=== PATIENT | male | born 1985 | race Caucasian/White ===

== ENCOUNTER 2022-11-01 13:05 | Emergency (ER) | payer OTHER ==
[2022-11-01 13:14] VITALS: BP 134/77; O2SAT 97
--- NOTE | 2022-11-01 14:05 | ED Physician Documentation ---
PD HPI HEAD INJURY - Stated complaint Stated Complaint: HEAD LAC - Chief complaint Chief Complaint: Laceration - History obtained from History obtained from: Patient - History of Present Illness Mechanism of head injury: Blow (accidentally struck with hammer. he was prying board loose above him, the hammer claw slipped and the hammer fell to his forehead, causing laceration.) Where head injury occurred: Home Timing - onset: Today Location of injury: Front Quality of pain: Sharp Associated symptoms: No: LOC, AMS, Nausea / vomiting Symptoms worsen with: Palpation Contributing factors: No: Anticoagulated Similar symptoms before: Has not had sx before Recently seen: Not recently seen Review of Systems Eyes: denies: Decreased vision, Irritation Neurologic: denies: Near syncope, Altered mental status, Headache PD PAST MEDICAL HISTORY - Past Medical History Cardiovascular: None Neuro: None - Allergies Allergies/Adverse Reactions: Allergies Allergy/AdvReac Type Severity Reaction Status Date / Time No Known Drug Allergies Allergy Verified 11/01/22 13:12 PD ED PE NORMAL - Vitals Vital signs reviewed: Yes - General General: Alert and oriented X 3, No acute distress, Well developed/nourished - HEENT HEENT: PERRL, EOMI, Other (right to mid forehead with 2 cm laceration "Z" shaped, with still some ongoing bleeding. no FB.) Results - Vitals Vitals: Vital Signs - 24 hr 11/01/22 13:08 Temperature 36.7 C Heart Rate 62 Respiratory 16 Rate Blood Pressure 134/77 H O2 Saturation 97 Oxygen O2 Source Room air Procedures - Laceration (location) forehead Length in cm: 2 Wound type: Irregular Neurovascular status: Sensory intact Anesthesia: Lidocaine 1% Skin layer closure: Nylon, Running, Size #-0 - enter number (6), Sutures - enter # (8) PD Medical Decision Making - ED course Complexity details: considered differential (forehead laceration. To fatty tissue. Irregular shape. Has some ongoing bleeding. Shared decision with pt to place sutures. Wound sutured without problems, with now bleeding stopped, and wound much nicer looking.), d/w patient Departure - Departure Disposition: 01 Home, Self Care Clinical Impression: Forehead laceration Qualifiers: Encounter type: initial encounter Qualified Code(s): S01.81XA - Laceration without foreign body of other part of head, initial encounter Condition: Stable Record reviewed to determine appropriate education?: Yes Instructions: ED Laceration All Comments: It is okay to wash and shower. Clean off the wound twice a day with soap and water, or peroxide and water. Apply some antibiotic ointment to it to keep it moist. Also to watch for signs of infection such as purulence, redness or increasing pain. Return to your primary care or the ER at the specified time for suture removal. Suture removal 7 to 8 days. Tylenol ibuprofen if needed for pains. Forms: PCP List Discharge Date/Time: 11/01/22 14:43
== END 2022-11-01 14:43 | disposition home or self-care (01) ==
LOC: ED 13:05
DX: S01.81XA Laceration without foreign body of other part of head, initial encounter (principal); W20.8XXA Other cause of strike by thrown, projected or falling object, initial encounter; Y93.89 Activity, other specified; Y92.009 Unspecified place in unspecified non-institutional (private) residence as the place of occurrence of the external cause
CPT/HCPCS: 12011; 99281

== ENCOUNTER 2024-11-26 23:44 | Inpatient (IN) ==
--- NOTE | 2024-11-27 00:22 | ED Physician Documentation ---
PD HPI ABD PAIN Stated complaint Stated Complaint: SOA/ABD PX Chief complaint Chief Complaint: Abd Pain Additional information Additional information: HPI from patient. Patient planes of generalized abdominal pain, predominantly right-sided, gradual onset 3-4 days ago while at home at rest, gradually progressing in intensity. Denies nausea, vomiting, diarrhea, fever. Denies h/o similar symptoms. Pain is constant and exacerbated with palpation. Past surgical history includes gastric fundoplication approximately 2 years ago. Denies dysuria, hematuria, back pain, dyspnea, chest pain. Meds/Allgy Home Medications Ambulatory Orders Medication Instructions Recorded Confirmed cyclobenzaprine 10 mg tablet 10 mg PO DAILY 11/27/24 1 duloxetine 20 mg capsule,delayed 60 mg PO DAILY 11/27/24 release lidocaine 5 % topical patch patch topical ONCE PRN linda n 11/27/24 omeprazole 20 mg capsule,delayed 20 mg PO ONCE 5 11/27/24 release Allergies Allergies Allergy/AdvReac Type Severity Reaction Status Date / Time iodine Allergy Mild HIVE Verified 11/27/24 07:44 PFSH Active Problems All Active Problems (Updated 11/27/24 @ 07:25 by London Naranjo MD) Biliary colic (Acute) Medical History Medical History (Updated 11/27/24 @ 07:25 by London Naranjo MD) No pertinent past medical history Surgical History Surgical History (Updated 11/27/24 @ 06:52 by Julian Mack MD) Status post laparoscopic Ryan fundoplication No pertinent past surgical history Social History Social History Smoking Status: Never smoker Living arrangement: At home Marital Status: Do you feel safe in your home environment?: Yes History of physical, verbal, emotional, or financial abuse?: No POLST Patient has POLST: No Exam Exam Vital Signs: Vital Signs x48h Temp Pulse Pulse Resp BP BP Pulse Ox 11/27/24 17:56 65 16 130/83 96 11/27/24 16:49 36.6 C 60 16 131/81 H 94 11/27/24 16:34 16 134/80 H 94 11/27/24 16:17 36.5 C 73 18 117/79 95 11/27/24 16:05 67 16 132/79 H 93 11/27/24 16:00 68 16 139/83 H 93 11/27/24 15:55 36.5 C 64 18 133/84 H 94 11/27/24 15:51 70 14 137/77 H 94 11/27/24 15:45 68 15 129/76 94 11/27/24 15:44 81 16 129/76 94 11/27/24 15:40 36.6 C 70 19 135/85 H 94 11/27/24 15:35 76 15 138/71 H 96 11/27/24 15:30 72 15 118/64 97 11/27/24 15:26 37.1 C 76 15 129/76 97 11/27/24 15:20 37.5 C 69 20 135/79 H 99 Constitutional normal general appearance, distress noted (obvious painful discomfort) (moderate) and alert Respiratory breath sounds equal bilaterally, clear to auscultation bilaterally and no wheezes Cardiovascular normal heart rate noted and regular rhythm noted Gastrointestinal abdomen soft to palpation and tender to palpation (moderate-severe TTP diffusely, most severe right side (RUQ=RLQ)) Genitourinary no CVA tenderness Results Vitals Vitals: Vital Signs - 24 hr 11/26/24 23:49 11/27/24 00:40 11/27/24 01:10 Temperature 36.4 C L Temperature Source Oral Pulse Rate 75 Pulse Rate [Brachial] Respiratory Rate 20 Blood Pressure 140/99 H Blood Pressure [Right Brachial artery] O2 Saturation 99 O2 Source Room air Sedation scale Pain Intensity 8 10 2 11/27/24 01:59 11/27/24 04:10 11/27/24 07:18 Temperature Temperature Source Pulse Rate 66 52 L 70 Pulse Rate [Brachial] Respiratory Rate 18 18 Blood Pressure 135/79 H 123/83 144/89 H Blood Pressure [Right Brachial artery] O2 Saturation 96 95 96 O2 Source Room air Room air Room air Sedation scale Pain Intensity 1 4 11/27/24 08:54 11/27/24 08:58 11/27/24 09:30 Temperature Temperature Source Pulse Rate 61 Pulse Rate [Brachial] Respiratory Rate 18 Blood Pressure 130/78 Blood Pressure [Right Brachial artery] O2 Saturation O2 Source Room air Sedation scale Pain Intensity 7 7 2 11/27/24 10:15 11/27/24 15:20 11/27/24 15:26 Temperature 36.5 C 37.5 C 37.1 C Temperature Source Temporal Artery Scan Pulse Rate 69 76 Pulse Rate [Brachial] 65 Respiratory Rate 18 20 15 Blood Pressure 135/79 H 129/76 Blood Pressure [Right Brachial artery] 131/84 H O2 Saturation 94 99 97 O2 Source Room air Sedation scale 0-Fully awake Pain Intensity 11/27/24 15:30 11/27/24 15:35 11/27/24 15:40 Temperature 36.6 C Temperature Source Pulse Rate 72 76 70 Pulse Rate [Brachial] Respiratory Rate 15 15 19 Blood Pressure 118/64 138/71 H 135/85 H Blood Pressure [Right Brachial artery] O2 Saturation 97 96 94 O2 Source Sedation scale Pain Intensity 11/27/24 15:44 11/27/24 15:45 11/27/24 15:51 Temperature Temperature Source Pulse Rate 81 68 70 Pulse Rate [Brachial] Respiratory Rate 16 15 14 Blood Pressure 129/76 129/76 137/77 H Blood Pressure [Right Brachial artery] O2 Saturation 94 94 94 O2 Source Sedation scale Pain Intensity 11/27/24 15:53 11/27/24 15:55 11/27/24 16:00 Temperature 36.5 C Temperature Source Pulse Rate 64 68 Pulse Rate [Brachial] Respiratory Rate 18 16 Blood Pressure 133/84 H 139/83 H Blood Pressure [Right Brachial artery] O2 Saturation 94 93 O2 Source Sedation scale Pain Intensity 3 11/27/24 16:05 11/27/24 16:17 11/27/24 16:34 Temperature 36.5 C Temperature Source Pulse Rate 67 73 Pulse Rate [Brachial] Respiratory Rate 16 18 16 Blood Pressure 132/79 H 117/79 134/80 H Blood Pressure [Right Brachial artery] O2 Saturation 93 95 94 O2 Source Sedation scale Pain Intensity 11/27/24 16:49 11/27/24 17:56 11/27/24 18:27 Temperature 36.6 C Temperature Source Pulse Rate 60 Pulse Rate [Brachial] 65 Respiratory Rate 16 16 Blood Pressure 131/81 H Blood Pressure [Right Brachial artery] 130/83 O2 Saturation 94 96 O2 Source Room air Sedation scale 1-Arouses easily Pain Intensity 0 3 11/27/24 18:37 11/27/24 18:37 Temperature Temperature Source Pulse Rate Pulse Rate [Brachial] Respiratory Rate Blood Pressure Blood Pressure [Right Brachial artery] O2 Saturation O2 Source Sedation scale Pain Intensity 3 3 Oxygen O2 Source Room air Labs Labs: Laboratory Tests 11/27/24 11/27/24 11/27/24 00:22 01:55 05:59 WBC 11.3 H 5.2 RBC 5.28 5.11 Hgb 16.0 15.5 Hct 45.3 44.5 MCV 85.8 87.1 MCH 30.3 30.3 MCHC 35.3 34.8 RDW 11.7 L 11.7 L Plt Count 231 198 MPV 9.4 9.1 Neut # (Auto) 8.1 H 3.7 Lymph # (Auto) 2.0 1.0 L [place] # (Auto) 0.9 0.5 Eos # (Auto) 0.2 0.0 Baso # (Auto) 0.0 0.0 Absolute Nucleated RBC 0.00 0.00 Nucleated RBC % 0.0 0.0 Sodium 137 136 Potassium 3.9 4.5 Chloride 102 101 Carbon Dioxide 30 31 Anion Gap 5.0 L 4.0 L BUN 14 12 Creatinine 1.0 0.9 Estimated GFR (MDRD) 84 L 94 Glucose 163 H 111 H Calcium 8.9 8.6 Total Bilirubin 1.0 1.8 H AST 79 H 176 H ALT 70 H 143 H Alkaline Phosphatase 84 83 Total Protein 7.0 6.6 Albumin 4.0 3.8 Globulin 3.0 2.8 Albumin/Globulin Ratio 1.3 1.4 Lipase 21 13 Urine Color y Urine Clarity c Urine pH 8.0 H Ur Specific [place] 1.010 Urine Protein NEGATIVE Urine Glucose (UA) NEGATIVE Urine Ketones NEGATIVE Urine Occult Blood NEGATIVE Urine Nitrite NEGATIVE Urine Bilirubin NEGATIVE Urine Urobilinogen 4 H Ur Leukocyte Esterase NEGATIVE Ur Microscopic Review NOT INDICATED Urine Culture Comments NOT INDICATED Rads (name of study) CT A/P with IV contrast: Relevant Findings:: Prelim report reviewed and See rad report PD Medical Decision Making ED course Complexity details: reviewed results, re-evaluated patient, considered differential and d/w patient ED course: Mild leukocytosis (WBC 11.3). Mildly elevated AST (79), ALT (70) but otherwise normal LFTs and normal lipase. CT A/P interpreted by radiololgist as "Cholelithiasis with gallbladder wall thickening and pericholecystic edema, concerning for acute cholecystitis. No radiopaque choledocholithiasis. Enlarged jaun hepatic lymph node, likely reactive." Patient is given 1 liter NS IV, 4mg IV zofran, 25mg IV benadryl, and 1mg IV hydromorphone. The benadryl and zofran were given as pre-treatment prior to the IV contrast as he seems to recall having nausea with IV contrast in the past, and his s.o. (at bedside) thinks he might have had hives with IV contrast in the past; neither is confident in these recollections, however. Patient did not have any adverse reaction(s) to tonight's IV contrast. He reports excellent symptom improvement with the IV dilaudid. On reexam, he is still TTP but significantly less than before receiving the medications. The TTP is now focal to RUQ and epigastrium. I discussed this case with Dr. Mack (leaf conditioner surgery for [facility]). There are no inpatient beds currently available at [facility] but likely will be in AM. Plan is to hold patient in ED until AM when Dr. Mack will evaluate patient in ED to assess for appropriate disposition. I did discuss option of d/c home with close follow-up and careful return precautions with patient but he is reluctant given how severe the pain was and how consistent it had been over past few days. Discharge Plan Discharge Patient Disposition: 66 [facility] DC/Xfer Condition: Stable Clinical Impression: Biliary colic Interventions: ED Admission Assessment Last Done: 11/27/24 09:15 Vitals documented within 30 minutes of discharge?: Yes
[2024-11-27 00:32] LABS: HCT - HEMATOCRIT 45.3 % (42.0-52.0); HGB - HEMOGLOBIN 16.0 g/dL (14.0-18.0); MEAN PLATELET VOLUME 9.4 fL (7.4-11.4); NRBC ABSOLUTE COUNT (AUTO) 0.00 x10^3/uL; NUCLEATED RED BLOOD CELLS AUTO 0.0 /100WBC; PLT - PLATELET COUNT 231 10^3/uL (130-450); RED CELL DISTRIBUTION WIDTH 11.7 % (12.0-15.0)
[2024-11-27] MEDS: SODIUM CHLORIDE 0.9% 1,000 ML IV STA ×2 (00:40→05:54)
[2024-11-27] MEDS: HYDROmorphone 1 MG/ML CARPUJECT IVP STA (00:40)
[2024-11-27 00:50] LABS: ALT ALANINE AMINOTRANSFERASE 70.0 IU/L (10-60); AST ASPARTATE AMINOTRANSFERASE 79.0 IU/L (10-42); BUN - BLOOD UREA NITROGEN 14.0 mg/dL (6-20); CARBON DIOXIDE - CO2 30.0 mmol/L (21-32); CREATININE 1.0 mg/dL (0.6-1.3); GFR - MDRD 84.0 (>89)
[2024-11-27] MEDS: ONDANSETRON 4 MG/2 ML VIAL IVP STA (01:25)
--- NOTE | 2024-11-27 02:10 | CT Report ---
PROCEDURE: CT Abdomen/Pelvis W INDICATIONS: abd. pain CONTRAST: 100cc [id number] TECHNIQUE: After the administration of intravenous contrast, a CT scan of the abdomen and pelvis was performed. Images were recorded and evaluated at appropriate window settings. Reformats: coronal and sagittal. For radiation dose reduction, the following was used: automated exposure control, adjustment of mA and/or kV according to patient size. COMPARISON: None. FINDINGS: Image quality: Diagnostic. Lower chest: Bilateral lower lobe dependent atelectasis. Liver: Diffuse hepatic steatosis. No focal mass. Increased attenuation of the gallbladder fossa, consistent with hyperemia, a secondary finding of acute cholecystitis. Gallbladder: Gallstones with gallbladder wall thickening and pericholecystic edema, concerning for acute cholecystitis. Biliary tree: No intrahepatic or extrahepatic dilation, accounting for age. No radiopaque choledocholithiasis. Spleen: No splenomegaly. Pancreas: No pancreatic ductal dilation. Adrenals: No adrenal nodule. Kidneys and ureters: No hydronephrosis. No renal cystic lesion which requires follow up. No solid mass. Stomach, bowel and peritoneum: No gastric or small bowel dilation. No abnormal wall thickening. No pathologic free fluid. Fundal gastric diverticulum. Normal appendix which courses inferiorly Lymph nodes: Enlarged jaun hepatic 1.5 cm node by short axis (2/47). Vessels: No infrarenal aortic aneurysm. Patent portal vein. PELVIS Reproductive organs: Unremarkable. Bladder: No abnormal wall thickening. Pelvic lymph nodes: No pelvic adenopathy by size criteria. Bones: No aggressive osseous abnormality. Other: No significant ventral or inguinal hernia. IMPRESSION: 1. Cholelithiasis with gallbladder wall thickening and pericholecystic edema, concerning for acute cholecystitis. No radiopaque choledocholithiasis. 2. Enlarged jaun hepatic lymph node, likely reactive. Findings were discussed with Dr. Naranjo by Dr. Campa at time of dictation. Reviewed by: Marv Campa MD on 11/27/2024 2:07 AM PDT Approved by: Marv Campa MD on 11/27/2024 2:07 AM PDT Station ID: [id number]
[2024-11-27 02:20] LABS: GLUCOSE, URINE (UA) NEGATIVE (NEGATIVE); KETONES,URINE (UA) NEGATIVE (NEGATIVE); OCCULT BLOOD,URINE NEGATIVE (NEGATIVE)
[2024-11-27 06:02] LABS: HCT - HEMATOCRIT 44.5 % (42.0-52.0); HGB - HEMOGLOBIN 15.5 g/dL (14.0-18.0); MEAN PLATELET VOLUME 9.1 fL (7.4-11.4); NRBC ABSOLUTE COUNT (AUTO) 0.00 x10^3/uL; NUCLEATED RED BLOOD CELLS AUTO 0.0 /100WBC; PLT - PLATELET COUNT 198 10^3/uL (130-450); RED CELL DISTRIBUTION WIDTH 11.7 % (12.0-15.0)
[2024-11-27 06:33] LABS: ALT ALANINE AMINOTRANSFERASE 143.0 IU/L (10-60); AST ASPARTATE AMINOTRANSFERASE 176.0 IU/L (10-42); BUN - BLOOD UREA NITROGEN 12.0 mg/dL (6-20); CARBON DIOXIDE - CO2 31.0 mmol/L (21-32); CREATININE 0.9 mg/dL (0.6-1.3); GFR - MDRD 94.0 (>89)
--- NOTE | 2024-11-27 06:59 | HISTORY & PHYSICAL EXAMINATION ---
Chief Complaint Chief Complaint Chief Complaint: Abdominal apin History of Present Illness Admitted From Admitted From:: ED History Obtained From History obtained from: Patient Exam Limitations: None History of Present Illness HPI Comment/Other: Bk is a 39 year old male who has had 3 days of crescenso bilary colic with the most intense episode starting yesterday around 2100. The pain is sharp, located in the RUQ and radiates to the back. He has no nausea, vomiting or bloating. A CT of the abdomen was performed last night and revealed gallstones and gallbladder distension. US was not available and there were no available beds to admit him into the hospital so he was managed in the ED. This morning his pain is nearly completely gone. Bk works in the [employer], had had a previous laparoscopic ryan fundoplication 5 years ago, and denies prior episodes of this type of abdominal discomfort before this week. He tells me his pain which was at level 8/10 last night is nor at a level of 3. Meds/Allgy Home Medications Ambulatory Orders Medication Instructions Recorded Confirmed hydrocodone 5 mg-acetaminophen 325 1 tab PO QID PRN pa in #14 tabs 09/12/24 mg tablet Allergies Allergies Allergy/AdvReac Type Severity Reaction Status Date / Time iodine Allergy Mild HIVE Verified 11/27/24 01:02 PFSH Active Problems All Active Problems (Updated 11/27/24 @ 06:52 by Julian Mack MD) Biliary colic (Acute) Medical History Medical History (Updated 11/27/24 @ 06:52 by Julian Mack MD) No pertinent past medical history Surgical History Surgical History (Updated 11/27/24 @ 06:52 by Julian Mack MD) Status post laparoscopic Ryan fundoplication No pertinent past surgical history Social History Social History Smoking Status: Never smoker Living arrangement: At home Marital Status: Do you feel safe in your home environment?: Yes History of physical, verbal, emotional, or financial abuse?: No POLST Patient has POLST: No Review of Systems Status of ROS: 10 or more systems reviewed and unremarkable except as noted in history and below Gastrointestinal Reports: Abdominal pain Prior Level of Functionality: Independent Exam Exam Vital Signs: Vital Signs x48h Temp Pulse Resp BP Pulse Ox 11/27/24 04:10 52 L 123/83 95 11/27/24 01:59 66 18 135/79 H 96 11/26/24 23:49 36.4 C L 75 20 140/99 H 99 Constitutional normal general appearance, no apparent distress and average body habitus [facility] normocephalic, head/scalp atraumatic, hearing grossly normal bilaterally and oral mucous membranes normal Eyes PERRL, EOMs intact bilaterally, conjunctivae normal and no scleral icterus Neck/C-Spine visual inspection normal, trachea midline and cervical spine nontender Lymph no lymphadenopathy noted Chest inspection of chest normal Respiratory breath sounds equal bilaterally, normal respiratory effort and clear to auscultation bilaterally Cardiovascular normal heart rate noted, regular rhythm noted and no murmur Gastrointestinal abdomen normal to inspection, abdomen soft to palpation, nondistended, normoactive bowel sounds and no hernia Mild RUQ tenderness to palpation; Negative Rangel's sign Extremities normal to inspection and full ROM Psychiatry mental status grossly normal, oriented x3, thought process normal, cooperative and affect normal Skin skin color normal, no rash and no jaundice Conclusion/Plan Problem List (1) Biliary colic: Plan: I think he has early cholecystitis despite the normal WBC. His LFT's are now minimally elevated. Plan 1) US RUQ - results pending 2) Admit for laparoscopic cholecystectomy, possible open cholecystectomy as soon as a bed is available 3) If there is US evidence of bile ductal dilation, MRCP will be obtained first Lab Results 11/27/24 05:59 11/27/24 05:59 Other Lab Results: T. Erik 1.8; Alk Phos 83; AST 176; ALT 143; Lipase 13 Diagnostic Imaging Results Diagnostic Imaging Results Comments: CT Abd/Pelvis - Distended gallbladder with gallstones; Wall thickening US RUQ - Pending
--- NOTE | 2024-11-27 07:19 | ED Physician Documentation ---
ED Addendum Addendum Addendum: Patient was handed off to me at [address] Naranjo. Briefly this is a patient who presented with abdominal pain and was found to have cholelithiasis, with concern for cholecystitis. Ultrasound completed this morning shows gallbladder wall thickening. Dr. Naranjo previously had spoken to surgeon overnight, who will plan to admit this patient to the floor. Patient required an additional dose of Dilaudid for me during his time in the ER but otherwise remained stable without other complaint. During my shift he was transferred to the floor. Discharge Plan Discharge Patient Disposition: 66 [facility] DC/Xfer Condition: Stable Clinical Impression: Biliary colic
--- NOTE | 2024-11-27 07:48 | Ultrasound Report ---
PROCEDURE: US Abdomen Limited INDICATIONS: RUQ pain TECHNIQUE: Real-time focused scanning was performed of the abdomen, with image documentation. COMPARISONS: CT abdomen and pelvis dated 11/27/2024 FINDINGS: Liver: Increased liver echogenicity, commonly mild hepatic steatosis. Gallbladder: Multiple layering gallstones. Wall thickening measuring 4 mm. No pericholecystic fluid. No sonographic Rangel's sign reported by the environmental monitoring specialist. Biliary ducts: Intrahepatic bile ducts are non-dilated. Extrahepatic bile duct caliber measures 5 mm. Normal is 6-7 mm or less in diameter, or 10 mm or less post-cholecystectomy. Pancreas: Not well visualized due to overlying bowel gas. Right kidney: Normal in size and echotexture. Right kidney measures 12.4 cm long. No hydronephrosis or nephrolithiasis. No solid masses. No complex renal cystic lesions which require follow-up. IVC: Intrahepatic inferior vena cava is patent. Miscellaneous: No free abdominal fluid. IMPRESSION: Cholelithiasis and gallbladder wall thickening. No significant pericholecystic fluid or abnormal sonographic Rangel sign reported. Findings may represent sequela of chronic cholecystitis. If there is persistent clinical concern, further evaluation with nuclear medicine HIDA scan can be considered. Hepatic steatosis. Preliminary findings reported to Dr. Naranjo by the environmental monitoring specialist at 0705 hours Reviewed by: George Dai MD on 11/27/2024 7:44 AM PDT Approved by: George Dai MD on 11/27/2024 7:44 AM PDT Station ID: [id number]
--- NOTE | 2024-11-27 08:26 | PROVIDER PROGRESS NOTE ---
Progress Note Progress Note Progress Note: General Surgery Pre-op Note Bk is a 39 year old male with clinical, lab, and image findings consistent with early acute cholecystitis. It is my recommendation that Bk undergo laparoscopic cholecystectomy, possible open open cholecystectomy. Consent: Bk has been counseled for the procedure, it's indications, risks, benefits and expected outcome. We specifically discussed risks associated with anesthesia, bleeding, infection, injury to surrounding structures which may require additional surgery, and the possible need for conversion to an open procedure. We also discussed the possible need for a blood transfusion with its risks and benefits. [] understands the content of our discussion and requests that we proceed with the procedure as outlined. Julian Mack MD, [facility] General Surgery Service
[2024-11-27] MEDS: HYDROmorphone 0.5 MG/0.5 ML SYRINGE IVP STA (08:54)
[2024-11-27] MEDS ORDERED: HYDROmorphone 0.5 MG/0.5 ML SYRINGE IVP PRN ×2 (10:08→15:27)
[2024-11-27] MEDS ORDERED: SODIUM CHLORIDE FLUSH 0.9% 10 ML SYRINGE IVP PRN ×2 (10:08→17:26)
--- NOTE | 2024-11-27 11:19 | ANESTHESIA PROCEDURE NOTE ---
Pre-Anesthesia VS, & Labs Diagnosis Surgical Diagnosis:: cholecystitis Procedure Procedure: laparoscopic cholecystectomy Vitals Vital Signs: Temp Pulse Resp BP Pulse Ox 36.5 C 65 18 131/84 H 94 11/27/24 10:15 11/27/24 10:15 11/27/24 10:15 11/27/24 10:15 11/27/24 10:15 NPO NPO: >8 hours Last Fluid Intake: ice chips taken away Lab Results Current Lab Results: Laboratory Tests 11/27/24 05:59: WBC 5.2, RBC 5.11, Hgb 15.5, Hct 44.5, MCV 87.1, MCH 30.3, MCHC 34.8, RDW 11.7 L, Plt Count 198, MPV 9.1, Neut # (Auto) 3.7, Lymph # (Auto) 1.0 L, [place] # (Auto) 0.5, Eos # (Auto) 0.0, Baso # (Auto) 0.0, Absolute Nucleated RBC 0.00, Nucleated RBC % 0.0, Sodium 136, Potassium 4.5, Chloride 101, Carbon Dioxide 31, Anion Gap 4.0 L, BUN 12, Creatinine 0.9, Estimated GFR (MDRD) 94, G lucose 111 H, Calcium 8.6, Total Bilirubin 1.8 H, AST 176 H, ALT 143 H, Alkaline Phosphatase 83, Total Protein 6.6, Albumin 3.8, Globulin 2.8, Albumin/Globulin Ratio 1.4, Lipase 13 11/27/24 00:22: WBC 11.3 H, RBC 5.28, Hgb 16.0, Hct 45.3, MCV 85.8, MCH 30.3, MCHC 35.3, RDW 11.7 L, Plt Count 231, MPV 9.4, Neut # (Auto) 8.1 H, Lymph # (Auto) 2.0, [place] # (Auto) 0.9, Eos # (Auto) 0.2, Baso # (Auto) 0.0, Absolute Nucleated RBC 0.00, Nucleated RBC % 0.0, Sodium 137, Potassium 3.9, Chloride 102, Carbon Dioxide 30, Anion Gap 5.0 L, BUN 14, Creatinine 1.0, Estimated GFR (MDRD) 84 L, Glucose 163 H, Calcium 8.9, Total Bilirubin 1.0, AST 79 H, ALT 70 H , Alkaline Phosphatase 84, Total Protein 7.0, Albumin 4.0, Globulin 3.0, Albumin/Globulin Ratio 1.3, Lipase 21 Lab results reviewed: Yes 11/27/24 05:59 11/27/24 05:59 Meds/Allgy Home Medications Ambulatory Orders Medication Instructions Recorded Confirmed cyclobenzaprine 10 mg tablet 10 mg PO DAILY 11/27/24 1 duloxetine 20 mg capsule,delayed 60 mg PO DAILY 11/27/24 release lidocaine 5 % topical patch patch topical ONCE PRN linda n 11/27/24 omeprazole 20 mg capsule,delayed 20 mg PO ONCE 5 11/27/24 release Allergies Allergies Allergy/AdvReac Type Severity Reaction Status Date / Time iodine Allergy Mild HIVE Verified 11/27/24 07:44 PFSH Active Problems All Active Problems (Updated 11/27/24 @ 07:25 by London Naranjo MD) Biliary colic (Acute) Medical History Medical History (Updated 11/27/24 @ 07:25 by London Naranjo MD) No pertinent past medical history Surgical History Surgical History (Updated 11/27/24 @ 06:52 by Julian Mack MD) Status post laparoscopic Ryan fundoplication No pertinent past surgical history Social History Social History Smoking Status: Never smoker Living arrangement: At home Marital Status: Do you feel safe in your home environment?: Yes History of physical, verbal, emotional, or financial abuse?: No POLST Patient has POLST: No Anesthesia Exam (Expanded) Exam General: Alert, Oriented x3 and Cooperative Dental: WNL Mouth Openin Fingerbreadth Neck Mobility: Normal Mallampati classification: II Thyromental Distance: 4-6 cm Respiratory: Lungs clear and Normal breath sounds Neurological: Normal gait and Normal speech Mental/Cognitive Status: Alert/Oriented X3 and Normal for patient Cognitive Status: Within normal limits Exam Exam Vital Signs: Vital Signs x48h Temp Pulse Pulse Resp BP BP Pulse Ox 11/27/24 10:15 36.5 C 65 18 131/84 H 94 11/27/24 08:58 61 18 130/78 11/27/24 07:18 70 18 144/89 H 96 10/07/25 04:10 52 L 123/83 95 Plan Problem List (1) Biliary colic: Plan: I think he has early cholecystitis despite the normal WBC. His LFT's are now minimally elevated. Plan 1) US RUQ - results pending 2) Admit for laparoscopic cholecystectomy, possible open cholecystectomy as soon as a bed is available 3) If there is US evidence of bile ductal dilation, MRCP will be obtained first Plan Anesthesia Type: General Consent for Procedure(s) Verified and Reviewed: Yes Code Status: Attempt Resuscitation ASA Classification ASA classification: 2-Mild systemic disease Is this case an emergency?: Yes
[2024-11-27] MEDS ORDERED: PROPOFOL 200 MG/20 ML VIAL IVP ONE (12:08)
[2024-11-27] MEDS ORDERED: LIDOCAINE-PF 2% 10 ML AMP SUBQ ONE (12:08)
[2024-11-27] MEDS ORDERED: ROCURONIUM 50 MG/5 ML VIAL ONE ×2 (12:09→14:21)
[2024-11-27] MEDS ORDERED: ONDANSETRON 4 MG/2 ML VIAL ONE (12:09)
[2024-11-27] MEDS ORDERED: DEXAMETHASONE 4 MG/ML VIAL ONE (12:09)
[2024-11-27] MEDS ORDERED: MIDAZOLAM 2 MG/2 ML VIAL ONE (12:10)
[2024-11-27] MEDS ORDERED: fentaNYL 100 MCG/2 ML VIAL ONE ×3 (12:10→15:52)
[2024-11-27] MEDS ORDERED: BUPIVACAINE 0.5% PF 10 ML VIAL ONE (12:15)
[2024-11-27] MEDS ORDERED: LIDOCAINE 1%-EPI 1:100000 20 ML MDV ONE (12:15)
[2024-11-27] MEDS: ceFAZolin (2G) 2 GM in SODIUM CHLORIDE 0.9% MINIBAG 100 ML IV ONE (12:36)
[2024-11-27] MEDS: SODIUM CHLORIDE FLUSH 0.9% 10 ML SYRINGE IVP SCH ×2 (12:37→18:28)
[2024-11-27] MEDS ORDERED: IOHEXOL IVP ONE (13:55)
[2024-11-27] MEDS ORDERED: KETOROLAC 30 MG/ML VIAL ONE (15:00)
[2024-11-27] MEDS ORDERED: SUGAMMADEX 200 MG/2 ML VIAL IVP ONE (15:02)
[2024-11-27] MEDS ORDERED: ACETAMINOPHEN 1,000 MG/100 ML 1,000 MG/100 ML BAG IV ONE (15:03)
[2024-11-27] MEDS ORDERED: ONDANSETRON 4 MG/2 ML VIAL IVP PRN ×2 (15:27→17:26)
[2024-11-27] MEDS ORDERED: METOCLOPRAMIDE 10 MG/2 ML VIAL IVP PRN (15:27)
[2024-11-27] MEDS ORDERED: ATROPINE ABBOJECT 1 MG/10 ML SYRINGE IVP PRN (15:27)
[2024-11-27] MEDS ORDERED: ePHEDrine 50 MG/ML VIAL IVP PRN (15:27)
[2024-11-27] MEDS ORDERED: NALOXONE 0.4 MG/ML VIAL IVP PRN (15:27)
[2024-11-27] MEDS ORDERED: MORPHINE 2 MG/ML CARPUJECT IVP PRN (15:27)
--- NOTE | 2024-11-27 15:40 | OPERATIVE REPORT ---
Operative Report General Procedure Data: Operation Date: 11/27/24 11:30 Proposed Procedures p Laparoscopic Cholecystectomy POSSIBLE OPEN(Not Applicable) - Julian Mack MD Actual Procedures p Laparoscopic Cholecystectomy(Not Applicable) - Julian Mack MD Pre-Op Diagnosis: cholelithiasis (gallbladder)/ gallbladder inflammation Anesthesia Type General Case Staff Anesthesia Provider: Guillermo Argueta Rep: Matthew Alfonso Case Times Into Recovery: 11/27/24 15:20 Procedure Start: 11/27/24 13:14 Time out: 11/27/24 13:14 Other Other Information/Narrative: PROCEDURE DATE: [] PREOPERATIVE DIAGNOSIS: Bk is a 39 year old male who has clinical, image, and laboratory findings consistent with biliary colic. I suspect he has mild inflammation of the gallbladder given the slight elevation in his LFT's. His US this morning revealed no evidence of bile duct dilation. Bk is being taken to the operating room for laparoscopic cholecystectomy, possible open cholecystectomy. POSTOPERATIVE DIAGNOSIS: Sever acute cholecystitis NAME OF PROCEDURE: Laparoscopic cholecystectomy SURGEON: Julian Mack MD, FACS [employer] PROGRAM MANAGER SURGEON: None ANESTHESIA: General endotracheal. ESTIMATED BLOOD LOSS: 40 mL. DRAINS: None SPECIMEN: Gallbladder COMPLICATIONS None FINDINGS: The gallbladder was markedly distended and covered with adipose tissue. The gallbladder wall underneath the adipose tissue was friable. There was dense fibrotic inflammatory tissue between the posterior wall of the gallbladder and the liver bed and the mid portion of the gallbladder was intra- hepatic. The cystic duct was dilated but there was no bile under pressure when a cystic ductotomy was created. The cystic node of Calot was 2 cm in diameter and was involved in the inflammatory tissue on the anterior aspect of the gallbladder wall. DESCRIPTION OF OPERATION FOLLOWS: After consent for the procedure was obtained, the patient was brought to the operating room where in the supine position, general endotracheal anesthesia was administered. A surgical time-out was performed indicating the patient and the procedure to be performed. The abdomen was prepped with alcohol-free chloroprep and draped in a sterile fashion. Pneumoperitoneum was achieved through a subumbilical incision using a Marcelino cannula and an open technique. Under direct vision, a 10 mm non-cutting laparoscopic port was placed in the sub-xiphoid region and two 5 mm noncutting ports were placed in the right upper quadrant; one in the mid-clavicular line and one in the anterior axillary line. Each of the port sites were infiltrated with 1% Lidocaine with epinephrine in a 50/50 mix with 1/4% Marcaine mixture prior making the incisions. The patient was placed in the steep reverse Trendelenburg position and rolled to the left. Inspection of the right upper quadrant revealed the above noted findings. The gallbladder was distended and required decompression with an 18 G spinal needle and a 20 ml syringe to obtain purchase with an endograsper. The gallbladder was grasped on the fundus and retracted superiorly and anteriorly. Adhesions between the gallbladder and omentum were gently teased off the anterior wall of the gallbladder. Adipose tissue adherent to the gallbladder wall was then dissected off of the gallbladder in such a a way that the neck of the gallbladder was identified. The neck was grasped and retracted laterally. The cystic duct was identified as it coursed from the gallbladder toward the common duct. It appeared dilated. The cystic node of Calot was dissected away from the gallbladder and this permitted dissection medial to the cystic duct. The cystic artery was then identified and the critical view was achieved once the liver bed was visualized behind the cystic artery and cystic duct. I decided to attempt an intra-operative cholangiogram due to the large diameter of the cystic duct. A hemoclip was placed at the junction of the gallbladder and the cystic duct and a small ductotomy was made in the cystic duct. There was no egress of bile under pressure from the duct. A separate 5 mm port was placed to introduce the cholangiocatheter into the duct but despite multiple maneuvers, I was unable to advance the catheter. The IOC was aborted. Both cystic duct (3 clips) and cystic artery (2 clips) were clipped proximally and distally and transected. The gallbladder was then removed from the liver bed using electrocautery and brought out through the subxiphoid port using an endo-catch device. During the course of the gallbladder retraction, a small rent occurred in the fundus of the gallbladder and bile and small gallstones spilled into the peritoneal cavity. The bile was aspirated from the peritoneal cavity and all visible stones were removed. Reinspection of the right upper quadrant revealed no evidence of bleeding or bile leakage from the previous dissection site (I placed a dry, clean, ray-tech gauze into the liver bed for several minutes. There was no bile on the gauze upon its removal.) The right upper quadrant was irrigated with warm sterile saline. The irrigant was aspirated. A search was made for sponges, packs, instruments, and needles. None were found. The sponge, pack, instrument, and needle counts were relayed to me as being correct. The sub-xiphoid port site was closed with a 0 Vicryl under direct vision using an endo-close device. The pneumoperitoneum then was released. There was no e vidence of bleeding from the laparoscopic port sleeve sites upon release of the pneumoperitoneum. The subumbilical incision was closed with 0 Vicryl for the linea alba. The skin of each of the port sites was closed with interrupted 4-0 Monocryl in a subcuticular fashion with Dermabond adhesive to reinforce the epidermis. Dressings were placed. The patient tolerated the procedure well and was brought to the recovery room with stable vital signs.
[2024-11-27] MEDS: fentaNYL 100 MCG/2 ML VIAL IVP PRN (15:53)
[2024-11-27] MEDS: LACTATED RINGERS 1,000 ML IV SCH ×2 (16:26)
--- NOTE | 2024-11-27 16:42 | ANESTHESIA POST OP EVALUATION ---
Anesthesia Post Eval Post Anesthesia Eval Vitals: Last Vital Signs Temp 36.5 C 11/27/24 16:17 Pulse 73 11/27/24 16:17 Resp 18 11/27/24 16:17 BP 117/79 11/27/24 16:17 Pulse Ox 95 11/27/24 16:17 CV Function Including HR & BP: Stable Pain Control: Satisfactory Nausea & Vomiting: Negative Mental Status: Baseline Respiratory Status: Airway Patent Hydration Status: Satisfactory Anesthesia Complications: None
[2024-11-27] MEDS: ceFAZolin (2G) 2 GM in SODIUM CHLORIDE 0.9% MINIBAG 100 ML IV SCH (18:36)
[2024-11-27] MEDS: ACETAMINOPHEN 325 MG TABLET PO SCH (18:37)
[2024-11-27] MEDS: KETOROLAC 30 MG/ML VIAL IVP SCH (18:37)
--- OUTSIDE RECORDS SUMMARY | 2024-11-27 19:59 | EXTERNAL MEDICAL SUMMARY RPT | Continuity of Care Document ---
Author Organization [facility] Address [address] [place] [phone] Phone Problems date description facility 2024-09-12 21:54 Nondisplaced fractur e of shaft of fourth metacarpal bone, right hand, initial encounter for closed [facility] 2024-09-14 11:51 [facility] 2024-09-14 11:51 Nondisplaced fractur e of shaft of fourth metacarpal bone, right hand, initial encounter for closed fracture [facility] 2024-11-27 07:25 Calculus of bile nilay t without cholangitis or cholecystitis without obstruction [facility] 2024-11-27 07:44 Calculus of bile nilay t without cholangitis or cholecystitis without obstruction [facility] 2024-11-27 08:10 Calculus of bile nilay t without cholangitis or cholecystitis without obstruction [facility] 2024-11-27 09:22 Calculus of bile nilay t without cholangitis or cholecystitis without obstruction [facility] 2024-11-27 15:42 Calculus of bile nilay t without cholangitis or cholecystitis without obstruction [facility] Results/Labs test date facility value unit notes Result panel 1 NUCLEATED RED BLOOD CELLS AUTO 2024-11-27 00:22 [facility] 0.0 /100wbc (missing) BASOPHILS # (AUTO) 2024-11-27 00:22 [facility] 0.0 10 3/ul (missing) NRBC ABSOLUTE COUNT (AUTO) 2024-11-27 00:22 [facility] 0.00 x10 3/ul (missing) EOSINOPHILS # (AUTO) 2024-11-27 00:22 [facility] 0.2 10 3/ul (missing) MONOCYTES # (AUTO) 2024-11-27 00:22 [facility] 0.9 10 3/ul (missing) BILIRUBIN,TOTAL 2024-11-27 00:22 [employer] [facility] 1.0 mg/dl As of August 2022 testing method has changed, this may include reference ranges. CREATININE 2024-11-27 00:22 [employer] [facility] 1.0 mg/dl As of August 2022 testing method has changed, this may include reference ranges. ALBUMIN/GLOBULIN RATIO 2024-11-27 00: [employer] [facility] 1.3 (missing) (missing) CHLORIDE 2024-11-27 00: [employer] [facility] 102 mmol/l As of August 2022 testing method has changed, this may include reference ranges. WHITE BLOOD COUNT 2024-11-27 00: [employer] [facility] 11.3 x10 3/ul (missing) RED CELL DISTRIBUTION WIDTH 2024-11-27 00[facility] 11.7 % (missing) SODIUM 2024-11-27 00: [employer] [facility] 137 mmol/l (missing) BUN - BLOOD UREA NITROGEN 2024-11-27 00: [employer] [facility] 14 mg/dl As of August 2022 testing method has changed, this may include reference ranges. HGB - HEMOGLOBIN 2024-11-27 00:22 [employer] [facility] 16.0 g/dl (missing) GLUCOSE 2024-11-27 00: [employer] [facility] 163 mg/dl As of August 2022 testing method has changed, this may include reference ranges. LYMPHOCYTES # (AUTO) 2024-11-27 00:22 [employer] [facility] 2.0 10 3/ul (missing) LIPASE 2024-11-27 00:22 [facility] 21 u/l As of August 2022 testing method has changed, this may include reference ranges. PLT - PLATELET COUNT 2024-11-27 00:22 [employer] [facility] 231 10 3/ul (missing) GLOBULIN 2024-11-27 00: [employer] [facility] 3.0 g/dl (missing) POTASSIUM 2024-11-27 00: [employer] [facility] 3.9 mmol/l As of August 2022 testing method has changed, this may include reference ranges. CARBON DIOXIDE - CO2 2024-11-27 00: [facility] 30 mmol/l As of August 2022 testing method has changed, this may include reference ranges. MEAN CORPUSCULAR HEMOGLOBIN 2024-11-27 00: [facility] 30.3 pg (missing) MEAN CORPUSCULAR HGB CONC 2024-11-27: [facility] 35.3 g/dl (missing) ALBUMIN 2024-11-27 00: [facility] 4.0 g/dl As of August 2022 testing method has changed, this may include reference ranges. HCT - HEMATOCRIT 2024-11-27: [facility] 45.3 % (missing) ANION GAP 2024-11-27 00: [facility] 5.0 (missing) (missing) RED BLOOD COUNT 2024-11-27 00: [facility] 5.28 10 6/ul (missing) TOTAL PROTEIN 2024-11-27: [facility] 7.0 g/dl As of August 2022 testing method has changed, this may include reference ranges. ALT ALANINE AMINOTRANSFERASE 2024-11-27: [facility] 70 iu/l As of August 2022 testing method has changed, this may include reference ranges. AST ASPARTATE AMINOTRANSFERASE 2024-11-27: [facility] 79 iu/l As of August 2022 testing method has changed, this may include reference ranges. NEUTROPHILS # (AUTO) 2024-11-27: [facility] 8.1 10 3/ul (missing) CALCIUM 2024-11-27: [facility] 8.9 mg/dl As of August 2022 testing method has changed, this may include reference ranges. GFR - MDRD 2024-11-27 00: [facility] 84 (missing) The IDMS-traceable MDRD Study Equation has been validated extensively in and populations between the ages of 18 and 70 with impaired kidney function (eGFR < 60 mL/min/1.73m2) and has shown good performance for patients with all common causes of kidney disease. Although this equation has not been validated for patients older than 70, an MDRD-derived eGFR may still be a useful tool for providers caring for patients older than 70. References: http://www.nkdep. nih.gov/lab-evalu ation/gfr/creatin ine-stand ardization, last updated April 2011. ALKALINE PHOSPHATASE 2024-11-27 00:22 [facility] 84 iu/l As of August 2022 testing method has changed, this may include reference ranges. MEAN CORPUSCULAR VOLUME 2024-11-27 00:22 [facility] 85.8 fl (missing) MEAN PLATELET VOLUME 2024-11-27 00:22 [facility] 9.4 fl (missing) Result panel 2 SPECIFIC GRAVITY,URINE 2024-11-27 01:55 [facility] 1.010 (missing) (missing) UROBILINOGEN,URINE 2024-11-27 01:55 [facility] 4 e.u./dl (missing) PH,URINE 2024-11-27 01:55 [facility] 8.0 ph (missing) LEUKOCYTE ESTERASE, URINE 2024-11-27 01:55 [facility] NEGATIVE (missing) (missing) NITRITE,URINE 2024-11-27 01:55 [facility] NEGATIVE (missing) (missing) OCCULT BLOOD,URINE 2024-11-27 01:55 [facility] NEGATIVE (missing) (missing) BILIRUBIN,URINE 2024-11-27 01:55 [facility] NEGATIVE (missing) Bilirubin can be influenced by color interference. Please correlate positive results with clinical presentation GLUCOSE, URINE (UA) 2024-11-27 01:55 [facility] NEGATIVE mg/dl (missing) KETONES,URINE (UA) 2024-11-27 01:55 [facility] NEGATIVE mg/dl (missing) PROTEIN,URINE 2024-11-27 01:55 [facility] NEGATIVE mg/dl (missing) UR CULTURE IF IND 2024-11-27 01:55 [facility] NOT INDICATED (missing) (missing) URINE MICROSCOPIC INDICATED? 2024-11-27 01:55 [facility] NOT INDICATED (missing) (missing) CLARITY,URINE 2024-11-27 01:55 [facility] c (missing) (missing) COLOR,URINE 2024-11-27 01:55 [facility] y (missing) URINE CLEAN CATCH Result panel 3 NUCLEATED RED BLOOD CELLS AUTO 2024-11-27 05:59 [facility] 0.0 /100wbc (missing) BASOPHILS # (AUTO) 2024-11-27 05:59 [facility] 0.0 10 3/ul (missing) EOSINOPHILS # (AUTO) 2024-11-27 05:59 [facility] 0.0 10 3/ul (missing) NRBC ABSOLUTE COUNT (AUTO) 2024-11-27 05:59 [facility] 0.00 x10 3/ul (missing) MONOCYTES # (AUTO) 2024-11-27 05:59 [facility] 0.5 10 3/ul (missing) CREATININE 2024-11-27 05:59 [facility] 0.9 mg/dl As of August 2022 testing method has changed, this may include reference ranges. LYMPHOCYTES # (AUTO) 2024-11-27 05:59 [facility] 1.0 10 3/ul (missing) ALBUMIN/GLOBULIN RATIO 2024-11-27 05:59 [facility] 1.4 (missing) (missing) BILIRUBIN,TOTAL 2024-11-27 05:59 [facility] 1.8 mg/dl As of August 2022 testing method has changed, this may include reference ranges. CHLORIDE 2024-11-27 05:59 [facility] 101 mmol/l As of August 2022 testing method has changed, this may include reference ranges. RED CELL DISTRIBUTION WIDTH 2024-11-27 05:59 [facility] 11.7 % (missing) GLUCOSE 2024-11-27 05:59 [facility] 111 mg/dl As of August 2022 testing method has changed, this may include reference ranges. BUN - BLOOD UREA NITROGEN 2024-11-27 05:59 [facility] 12 mg/dl As of August 2022 testing method has changed, this may include reference ranges. LIPASE 2024-11-27 05:59 [facility] 13 u/l As of August 2022 testing method has changed, this may include reference ranges. SODIUM 2024-11-27 05:59 [facility] 136 mmol/l (missing) ALT ALANINE AMINOTRANSFERASE 2024-11-27 05:59 [facility] 143 iu/l As of August 2022 testing method has changed, this may include reference ranges. HGB - HEMOGLOBIN 2024-11-27 05:59 [facility] 15.5 g/dl (missing) AST ASPARTATE AMINOTRANSFERASE 2024-11-27 05:59 [facility] 176 iu/l As of August 2022 testing method has changed, this may include reference ranges. PLT - PLATELET COUNT 2024-11-27 05:59 [facility] 198 10 3/ul (missing) GLOBULIN 2024-11-27 05:59 [facility] 2.8 g/dl (missing) NEUTROPHILS # (AUTO) 2024-11-27 05:59 [facility] 3.7 10 3/ul (missing) ALBUMIN 2024-11-27 05:59 [facility] 3.8 g/dl As of August 2022 testing method has changed, this may include reference ranges. MEAN CORPUSCULAR HEMOGLOBIN 2024-11-27 05:59 [facility] 30.3 pg (missing) CARBON DIOXIDE - CO2 2024-11-27 05:59 [facility] 31 mmol/l As of August 2022 testing method has changed, this may include reference ranges. MEAN CORPUSCULAR HGB CONC 2024-11-27 05:59 [facility] 34.8 g/dl (missing) ANION GAP 2024-11-27 05:59 [facility] 4.0 (missing) (missing) POTASSIUM 2024-11-27 05:59 [facility] 4.5 mmol/l As of August 2022 testing method has changed, this may include reference ranges. HCT - HEMATOCRIT 2024-11-27 05:59 [facility] 44.5 % (missing) RED BLOOD COUNT 2024-11-27 05:59 [facility] 5.11 10 6/ul (missing) WHITE BLOOD COUNT 2024-11-27 05:59 [facility] 5.2 x10 3/ul (missing) TOTAL PROTEIN 2024-11-27 05:59 [facility] 6.6 g/dl As of August 2022 testing method has changed, this may include reference ranges. CALCIUM 2024-11-27 05:59 [facility] 8.6 mg/dl As of August 2022 testing method has changed, this may include reference ranges. ALKALINE PHOSPHATASE 2024-11-27 05:59 [facility] 83 iu/l As of August 2022 testing method has changed, this may include reference ranges. MEAN CORPUSCULAR VOLUME 2024-11-27 05:59 [facility] 87.1 fl (missing) MEAN PLATELET VOLUME 2024-11-27 05:59 [facility] 9.1 fl (missing) GFR - MDRD 2024-11-27 05:59 [facility] 94 (missing) The IDMS-traceable MDRD Study Equation has been validated extensively in and populations between the ages of 18 and 70 with impaired kidney function (eGFR < 60 mL/min/1.73m2) and has shown good performance for patients with all common causes of kidney disease. Although this equation has not been validated for patients older than 70, an MDRD-derived eGFR may still be a useful tool for providers caring for patients older than 70. References: http://www.nkdep. nih.gov/lab-evalu ation/gfr/creatin ine-stand ardization, last updated April 2011. Social History date description facility
[2024-11-28 06:36] LABS: HCT - HEMATOCRIT 43.1 % (42.0-52.0); HGB - HEMOGLOBIN 15.2 g/dL (14.0-18.0); MEAN PLATELET VOLUME 9.5 fL (7.4-11.4); NRBC ABSOLUTE COUNT (AUTO) 0.00 x10^3/uL; NUCLEATED RED BLOOD CELLS AUTO 0.0 /100WBC; PLT - PLATELET COUNT 216 10^3/uL (130-450); RED CELL DISTRIBUTION WIDTH 11.7 % (12.0-15.0)
[2024-11-28 06:53] LABS: ALT ALANINE AMINOTRANSFERASE 290.0 IU/L (10-60); AST ASPARTATE AMINOTRANSFERASE 251.0 IU/L (10-42); BUN - BLOOD UREA NITROGEN 8.0 mg/dL (6-20); CARBON DIOXIDE - CO2 28.0 mmol/L (21-32); CREATININE 1.0 mg/dL (0.6-1.3); GFR - MDRD 84.0 (>89)
[2024-11-28] MEDS: PANTOPRAZOLE 40 MG TABLET PO SCH (07:05)
--- NOTE | 2024-11-28 07:07 | PROVIDER PROGRESS NOTE ---
Progress Note Progress Note Progress Note: General Surgery Progress Note Hospital Day # 2 POD # 1, Laparoscopic cholecystectomy Code Status: Full ASSESSMENT: 1) Clinically stable 2) Post-op hyperbilirubinemia - possible cystic duct leak, retained CBD stone PLAN: 1) MRCP this morning <><><><><> PERTINENT INTERVAL ISSUES: None S: Awake, alert, in no distress; Pre-op discomfort resolved. Minimal abdominal discomfort controlled with Toradol and Tyleno; Tolerating a diet.l OBJECTIVE: VS: BP 147/79; P 61; RR 18; T 36.6 EXAMINATION: MENTAL STATUS: AAO; Comfortable EYES: Pupils equal, round and reactive to light, sclera anicteric, EARS, NOSE, MOUTH, THROAT: Normal hearing, Oral mucous membranes moist and without lesions; NECK: No crepitus, lymphadenopathy, or thyromegaly LUNGS: Clear to auscultation without wheezing; No use of accessory muscles to breathe CARDIOVASCULAR: Heart-NSR without murmurs; ABD: Soft, port sites clan and dry; + BS EXTREMITIES: No clubbing, cyanosis, infections SKIN: Anicteric; No rashes, lesions, ulcerations LABS: WBC 8.8; H&H 15.2/43.1; PLT 216K; NA 136; K 4.2; Cr 1.0; Glu 201 CULTURES: N/A IMAGING: N/A ANTIMICROBIALS: Prophylactic completed PAIN CONTROL: Ketorolac IV, Acetaminophen VTEP: Chemical: None Mechanical: FAUSTO Mack MD, FACS General Surgery Service
[2024-11-28] MEDS: oxyCODONE 5 MG TABLET PO PRN (07:45)
[2024-11-28] MEDS ORDERED: GADOTERATE MEGLUMINE 10 MMOL/20 ML VIAL ONE (08:15)
[2024-11-28] MEDS: GADOTERATE MEGLUMINE 10 MMOL/20 ML VIAL IVP ONE (08:48)
--- NOTE | 2024-11-28 10:06 | MRI Report ---
PROCEDURE: MRI MRCP W/WO INDICATIONS: Possible common bile duct stone CONTRAST: 18.8ml Clariscan TECHNIQUE: Multisequence, multiplanar MRI of the abdomen and the extrahepatic bile ducts was performed, with and without intravenous contrast. COMPARISON: 11/26/2024, 11/27/2024 FINDINGS: Image quality: Excellent. Lung bases and heart: Trace pleural effusions. Liver: 9 mm hemangioma in segment 6 8 Gallbladder: Absent. Mild edema within the surgical bed. Biliary tree: No intrahepatic or extrahepatic dilation, accounting for age. 2 mm stone in the distal common bile duct (series 2, image 18).. Spleen: No splenomegaly. Pancreas: No pancreatic ductal dilation. Adrenals: No adrenal nodule. Kidneys and ureters: No hydronephrosis. No renal cystic lesion which requires follow up. No solid mass. Bowel and peritoneum: No bowel distension. No pathologic free fluid. Lymph nodes: No central or retroperitoneal adenopathy. Vessels: No infrarenal aortic aneurysm. Bones: No aggressive osseous abnormality. Other: No significant ventral hernia. IMPRESSION: Interval cholecystectomy. 2 mm stone in the distal common bile duct. No biliary dilation. No pancreatitis. Reviewed by: Kennedy Green MD on 11/28/2024 9:03 AM KAREN Approved by: Kennedy Green MD on 11/28/2024 9:03 AM KAREN Station ID: [id number]
--- NOTE | 2024-11-28 10:52 | PROVIDER PROGRESS NOTE ---
Progress Note Progress Note Progress Note: General Surgery Progress Note S: Feels fine. No abdominal pain; Hungry O: VSS, Afeb; MRCP demonstrates a 2 mm distal CBD stone without bile duct dilation A: Retained CBD stone; No clinical evidence of cholangitis P: I contacted [facility] (Dr. Moris Beverly) who is happy to perform ERCP this afternoon. The hospital is full so they will contact us when a bed is available at which time transfer will occur. In the meantime he is permitted to have limited sips and chips orally. Bk has been informed of the MRCP results and our plan for management. Julian Mack MD, FACS General Surgery Service
--- OUTSIDE RECORDS SUMMARY | 2024-11-28 14:46 | EXTERNAL MEDICAL SUMMARY RPT | Continuity of Care Document ---
Author Organization [place] Address [address] [place] [address] Phone Problems date description facility 2024-09-12 21:54 Nondisplaced fractur e of shaft of fourth metacarpal bone, right hand, initial encounter for closed fracture [facility] 2024-09-14 11:51 Pain in right hand [facility] 2024-09-14 11:51 Nondisplaced fractur e of shaft of fourth metacarpal bone, right hand, initial encounter for closed fracture [facility] 2024-11-27 07:25 Calculus of bile nilay t without cholangitis or cholecystitis without obstruction [facility] 2024-11-27 07:44 Calculus of bile nilay t without cholangitis or cholecystitis without obstruction [facility] 2024-11-27 08:10 Calculus of bile nilay t without cholangitis or cholecystitis without obstruction [facility] 2024-11-27 09:22 Calculus of bile nilay t without cholangitis or cholecystitis without obstruction [facility] 2024-11-27 15:42 Calculus of bile nilay t without cholangitis or cholecystitis without obstruction [facility] 2024-11-28 13:10 Other disorders of bilirubin me tabolism [facility] 2024-11-28 13:10 Calculus of bile nilay t without cholangitis or cholecystitis without obstruction [facility] 2024-11-28 13:11 Calculus of bile nilay t without cholangitis or cholecystitis without obstruction [facility] 2024-11-28 13:15 Other disorders of bilirubin me tabolism [facility] 2024-11-28 13:15 Calculus of bile nilay t without cholangitis or cholecystitis without obstruction [facility] 2024-11-28 13:16 Calculus of bile nilay t without cholangitis or cholecystitis without obstruction [facility] Results/Labs test date facility value unit notes Result panel 1 NUCLEATED RED BLOOD CELLS AUTO 2024-11-27 [facility] /100wbc (missing) BASOPHILS # (AUTO) 2024-11-27 00[facility] 0.0 10 3/ul (missing) NRBC ABSOLUTE COUNT (AUTO) 2024-11-27 00[facility] 0.00 x10 3/ul (missing) EOSINOPHILS # (AUTO) 2024-11-27 00: [facility] 0.2 10 3/ul (missing) MONOCYTES # (AUTO) 2024-11-27 00: [facility] 0.9 10 3/ul (missing) BILIRUBIN,TOTAL 2024-11-27 00: [facility] 1.0 mg/dl As of August 2022 testing method has changed, this may include reference ranges. CREATININE 2024-11-27 00: [facility] 1.0 mg/dl As of August 2022 testing method has changed, this may include reference ranges. ALBUMIN/GLOBULIN RATIO 2024-11-27 00: [facility] 1.3 (missing) (missing) CHLORIDE 2024-11-27 00: [facility] 102 mmol/l As of August 2022 testing method has changed, this may include reference ranges. WHITE BLOOD COUNT 2024-11-27 00: [facility] 11.3 x10 3/ul (missing) RED CELL DISTRIBUTION WIDTH 2024-11-27 00: [facility] 11.7 % (missing) SODIUM 2024-11-27 00: [facility] 137 mmol/l (missing) BUN - BLOOD UREA NITROGEN 2024-11-27 00: [facility] 14 mg/dl As of August 2022 testing method has changed, this may include reference ranges. HGB - HEMOGLOBIN 2024-11-27 00: [facility] 16.0 g/dl (missing) GLUCOSE 2024-11-27 00: [facility] 163 mg/dl As of August 2022 testing method has changed, this may include reference ranges. LYMPHOCYTES # (AUTO) 2024-11-27 00: [email or web address] 2.0 10 3/ul (missing) LIPASE 2024-11-27 00: [facility] 21 u/l As of August 2022 testing method has changed, this may include reference ranges. PLT - PLATELET COUNT 2024-11-27 00: [facility] 231 10 3/ul (missing) GLOBULIN 2024-11-27 00: [facility] 3.0 g/dl (missing) POTASSIUM 2024-11-27 00: [facility] 3.9 mmol/l As of August 2022 testing method has changed, this may include reference ranges. CARBON DIOXIDE - CO2 2024-11-27 00: [facility] 30 mmol/l As of August 2022 testing method has changed, this may include reference ranges. MEAN CORPUSCULAR HEMOGLOBIN 2024-11-27 00: [facility] 30.3 pg (missing) MEAN CORPUSCULAR HGB CONC 2024-11-27 00: [facility] 35.3 g/dl (missing) ALBUMIN 2024-11-27 00: [facility] [email or web address] 4.0 g/dl As of August 2022 testing method has changed, this may include reference ranges. HCT - HEMATOCRIT 2024-11-27 00: [facility] 45.3 % (missing) ANION GAP 2024-11-27: [email or web address] 5.0 (missing) (missing) RED BLOOD COUNT 2024-11-27 00: [facility] 5.28 10 6/ul (missing) TOTAL PROTEIN 2024-11-27 00: [facility] 7.0 g/dl As of August 2022 testing method has changed, this may include reference ranges. ALT ALANINE AMINOTRANSFERASE 2024-11-27 00: [facility] 70 iu/l As of August 2022 testing method has changed, this may include reference ranges. AST ASPARTATE AMINOTRANSFERASE 2024-11-27 00: [facility] 79 iu/l As of August 2022 testing method has changed, this may include reference ranges. NEUTROPHILS # (AUTO) 2024-11-27 00: [employer] 8.1 10 3/ul (missing) CALCIUM 2024-11-27 00: [facility] 8.9 mg/dl As of August 2022 testing method has changed, this may include reference ranges. GFR - MDRD 2024-11-27 00:[facility] 84 (missing) The IDMS-traceable MDRD Study Equation [...] updated April 2011. ALKALINE PHOSPHATASE 2024-11-27 00:22 [facility] 84 iu/l As of August 2022 [...] /100wbc (missing) BASOPHILS # (AUTO) 2024-11-27 05:59 [facility] 0.0 10 3/ul (missing) EOSINOPHILS # (AUTO) 2024-11-27 05:59 [facility] 0.0 10 3/ul (missing) NRBC ABSOLUTE COUNT (AUTO) 2024-11-27 05:59 [facility] 0.00 x10 3/ul (missing) MONOCYTES # (AUTO) 2024-11-27 05:59 [facility] 0.5 10 3/ul (missing) CREATININE 2024-11-27 05:59 [facility] 0.9 mg/dl As of August 2022 testing method has changed, this may include reference ranges. LYMPHOCYTES # (AUTO) 2024-11-27 05:59 [facility] 1.0 10 3/ul (missing) ALBUMIN/GLOBULIN RATIO 2024-11-27 05:59 [facility] 1.4 (missing) (missing) BILIRUBIN,TOTAL 2024-11-27 05:59 [facility] 1.8 mg/dl As of August 2022 testing method has changed, this may include reference ranges. CHLORIDE 2024-11-27 05:59 [facility] 101 mmol/l As of August 2022 testing method has changed, this may include reference ranges. RED CELL DISTRIBUTION WIDTH 2024-11-27 05:59 [facility] 11.7 % (missing) GLUCOSE 2024-11-27 05:59 [facility] 111 mg/dl As of August 2022 testing method has changed, this may include reference ranges. BUN - BLOOD UREA NITROGEN 2024-11-27 05:59 [facility] 12 mg/dl As of August 2022 testing method has changed, this may include reference ranges. LIPASE 2024-11-27 05:59 [facility] 13 u/l As of August 2022 testing method has changed, this may include reference ranges. SODIUM 2024-11-27 05:59 [facility] 136 mmol/l (missing) ALT ALANINE AMINOTRANSFERASE 2024-11-27 05:59 [facility] 143 iu/l As of August 2022 testing method has changed, this may include reference ranges. HGB - HEMOGLOBIN 2024-11-27 05:59 [facility] 15.5 g/dl (missing) AST ASPARTATE AMINOTRANSFERASE 2024-11-27 05:59 [facility] 176 iu/l As of August 2022 testing method has changed, this may include reference ranges. PLT - PLATELET COUNT 2024-11-27 05:59 [facility] 198 10 3/ul (missing) GLOBULIN 2024-11-27 05:59 [facility] 2.8 g/dl (missing) NEUTROPHILS # (AUTO) 2024-11-27 05:59 [facility] 3.7 10 3/ul (missing) ALBUMIN 2024-11-27 05:59 [facility] 3.8 g/dl As of August 2022 testing method has changed, this may include reference ranges. MEAN CORPUSCULAR HEMOGLOBIN 2024-11-27 05:59 [facility] 30.3 pg (missing) CARBON DIOXIDE - CO2 2024-11-27 05:59 [facility] 31 mmol/l As of August 2022 testing method has changed, this may include reference ranges. MEAN CORPUSCULAR HGB CONC 2024-11-27 05:59 [facility] 34.8 g/dl (missing) ANION GAP 2024-11-27 05:59 [facility] 4.0 (missing) (missing) POTASSIUM 2024-11-27 05:59 [facility] 4.5 mmol/l As of August 2022 testing method has changed, this may include reference ranges. HCT - HEMATOCRIT 2024-11-27 05:59 [facility] 44.5 % (missing) RED BLOOD COUNT 2024-11-27 05:59 [facility] 5.11 10 6/ul (missing) WHITE BLOOD COUNT 2024-11-27 05:59 [facility] 5.2 x10 3/ul (missing) TOTAL PROTEIN 2024-11-27 05:59 [facility] 6.6 g/dl As of August 2022 testing method has changed, this may include reference ranges. CALCIUM 2024-11-27 05:59 [facility] 8.6 mg/dl As of August 2022 testing method has changed, this may include reference ranges. ALKALINE PHOSPHATASE 2024-11-27 05:59 [facility] 83 iu/l As of August 2022 testing method has changed, this may include reference ranges. MEAN CORPUSCULAR VOLUME 2024-11-27 05:59 [email or web address] 87.1 fl (missing) MEAN PLATELET VOLUME 2024-11-27 05:59 [facility] 9.1 fl (missing) GFR - MDRD 2024-11-27 05:59 [employer] 94 (missing) The IDMS-traceable MDRD Study Equation [...] ation/gfr/creatin ine-stand ardization, last updated April 2011. Result panel 4 NUCLEATED RED BLOOD CELLS AUTO 2024-11-28 05:57 [email or web address] 0.0 /100wbc (missing) BASOPHILS # (AUTO) 2024-11-28 05:57 [email or web address] 0.0 10 3/ul (missing) EOSINOPHILS # (AUTO) 2024-11-28 05:57 [email or web address] 0.0 10 3/ul (missing) NRBC ABSOLUTE COUNT (AUTO) 2024-11-28 05:57 [email or web address] 0.00 x10 3/ul (missing) MONOCYTES # (AUTO) 2024-11-28 05:57 [email or web address] 0.5 10 3/ul (missing) LYMPHOCYTES # (AUTO) 2024-11-28 05:57 [facility] 0.7 10 3/ul (missing) CREATININE 2024-11-28 05:57 [facility] 1.0 mg/dl As of August 2022 testing method has changed, this may include reference ranges. ALBUMIN/GLOBULIN RATIO 2024-11-28 05:57 [facility] 1.5 (missing) (missing) CHLORIDE 2024-11-28 05:57 [facility] 101 mmol/l As of August 2022 testing method has changed, this may include reference ranges. RED CELL DISTRIBUTION WIDTH 2024-11-28 05:57 [facility] 11.7 % (missing) SODIUM 2024-11-28 05:57 [facility] 136 mmol/l (missing) HGB - HEMOGLOBIN 2024-11-28 05:57 [facility] 15.2 g/dl (missing) GLOBULIN 2024-11-28 05:57 [email or web address] 2.6 g/dl (missing) GLUCOSE 2024-11-28 05:57 [email or web address] 201 mg/dl As of August 2022 testing method has changed, this may include reference ranges. PLT - PLATELET COUNT 2024-11-28 05:57 [email or web address] 216 10 3/ul (missing) AST ASPARTATE AMINOTRANSFERASE 2024-11-28 05:57 [facility] 251 iu/l As of August 2022 testing method has changed, this may include reference ranges. CARBON DIOXIDE - CO2 2024-11-28 05:57 [email or web address] 28 mmol/l As of August 2022 testing method has changed, this may include reference ranges. ALT ALANINE AMINOTRANSFERASE 2024-11-28 05:57 [facility] 290 iu/l As of August 2022 testing method has changed, this may include reference ranges. ALBUMIN 2024-11-28 05:57 [email or web address] 3.8 g/dl As of August 2022 testing method has changed, this may include reference ranges. MEAN CORPUSCULAR HEMOGLOBIN 2024-11-28 05:57 [email or web address] 30.6 pg (missing) MEAN CORPUSCULAR HGB CONC 2024-11-28 05:57 [email or web address] 35.3 g/dl (missing) POTASSIUM 2024-11-28 05:57 [email or web address] 4.2 mmol/l As of August 2022 testing method has changed, this may include reference ranges. BILIRUBIN,TOTAL 2024-11-28 05:57 [email or web address] 4.3 mg/dl As of August 2022 testing method has changed, this may include reference ranges. RED BLOOD COUNT 2024-11-28 05:57 [email or web address] 4.96 10 6/ul (missing) HCT - HEMATOCRIT 2024-11-28 05:57 [email or web address] 43.1 % (missing) TOTAL PROTEIN 2024-11-28 05:57 [email or web address] 6.4 g/dl As of August 2022 testing method has changed, this may include reference ranges. ANION GAP 2024-11-28 05:57 [email or web address] 7.0 (missing) (missing) NEUTROPHILS # (AUTO) 2024-11-28 05:57 [email or web address] 7.5 10 3/ul (missing) BUN - BLOOD UREA NITROGEN 2024-11-28 05:57 [email or web address] 8 mg/dl As of August 2022 testing method has changed, this may include reference ranges. CALCIUM 2024-11-28 05:57 [email or web address] 8.7 mg/dl As of August 2022 testing method has changed, this may include reference ranges. WHITE BLOOD COUNT 2024-11-28 05:57 [email or web address] 8.8 x10 3/ul (missing) GFR - MDRD 2024-11-28 05:57 [email or web address] 84 (missing) The IDMS-traceable MDRD Study Equation [...] ation/gfr/creatin ine-stand ardization, last updated April 2011. MEAN CORPUSCULAR VOLUME 2024-11-28 05:57 [email or web address] 86.9 fl (missing) MEAN PLATELET VOLUME 2024-11-28 05:57 [facility] 9.5 fl (missing) ALKALINE PHOSPHATASE 2024-11-28 05:57 [facility] 95 iu/l As of August 2022 testing method has changed, this may include reference ranges. Social History date description facility
--- NOTE | 2024-11-28 14:47 | PHARMACY PROGRESS NOTE ---
Best Possible Medication History Admit Date and Time: 11/28/24 1434 Home Medications Medication Instructions Recorded Confirmed Type cyclobenzaprine 10 mg tablet 10 mg PO DAILY 11/27/24 1 History duloxetine 20 mg capsule,delayed 60 mg PO DAILY 11/27/24 History release lidocaine 5 % topical patch 1 patch topical DAILY PRN pain 11/27/24 11/28/24 History omeprazole 20 mg capsule,delayed 20 mg PO DAILY PRN he artburn 11/27/24 11/28/24 History release acetaminophen 325 mg tablet 650 mg (2 x 325 mg) PO Q6H #60 tabs 11/28/24 Rx diphenhydramine 25 1 tab PO HS PRN sleep 11/28/24 History mg-acetaminophen 500 mg tablet (Tylenol PM Extra Strength) ibuprofen 200 mg tablet 600 mg (3 x 200 mg) PO TID # 90 tabs 11/28/24 Rx Processed by: Pharmacy Medications reviewed in ED?: No Medication History completed: Yes Patient Interview: Completed Secondary Source(s): Insurance records [facility] Statement: As the person ultimately responsible for medication therapy, providers are able to order a medication from an existing home medication list in [facility] via the "Reconcile Routine" prior to Confirmation of that medication by client support coordinator. Such practice is discouraged except when the physician, in their clinical judgment, deems that a medical need exists for a medication without regard to previous use.
--- NOTE | 2024-11-28 16:35 | PROVIDER PROGRESS NOTE ---
Progress Note Progress Note Progress Note: General Surgery Progress Note S: Comfortable; Hungry; No abdominal pain, nausea, or vomiting O: VSS, afeb; Abdomen is soft and non-tender A: Post op choledocholithiasis - patient is clinically stable. He is awaiting a bed opening at [facility] for ERCP presumably tomorrow. P: Regular diet tonight; NPO after midnight; Labs in am. Transfer when bed available. Bk is disappointed in the delay but understands and appreciates out efforts to facilitate appropriate specialty care. Julian Mack MD, FACS General Surgery Service
[2024-11-29 06:12] LABS: HCT - HEMATOCRIT 45.3 % (42.0-52.0); HGB - HEMOGLOBIN 15.3 g/dL (14.0-18.0); MEAN PLATELET VOLUME 9.1 fL (7.4-11.4); NRBC ABSOLUTE COUNT (AUTO) 0.00 x10^3/uL; NUCLEATED RED BLOOD CELLS AUTO 0.0 /100WBC; PLT - PLATELET COUNT 190 10^3/uL (130-450); RED CELL DISTRIBUTION WIDTH 11.9 % (12.0-15.0)
[2024-11-29 06:33] LABS: ALT ALANINE AMINOTRANSFERASE 313.0 IU/L (10-60); AST ASPARTATE AMINOTRANSFERASE 193.0 IU/L (10-42); BUN - BLOOD UREA NITROGEN 7.0 mg/dL (6-20); CARBON DIOXIDE - CO2 31.0 mmol/L (21-32); CREATININE 1.0 mg/dL (0.6-1.3); GFR - MDRD 84.0 (>89)
--- NOTE | 2024-11-29 07:32 | PROVIDER PROGRESS NOTE ---
Progress Note Progress Note Progress Note: General Surgery Progress Note S: Slept well; Minimal abdominal discomfort; Passed a bowel motion last night O: VSS, Afeb; Port sites clean and dry; Abd soft; Minimal port site discomfort WBC 5.8; Hgb 15.3; T Bili 4.7; AST 193; ALT 313 A: POD # 2 laparoscopic cholecystectomy for severe acute cholecystitis. The patient has an MRCP documented 2 mm retained stone in the distal CBD. He is awaiting transfer to [facility] for ERCP which should occur today. P: NPO; Transfer when [facility] has availability Julian Mack MD, FACS General Surgery Service
[2024-11-30 06:17] LABS: ALT ALANINE AMINOTRANSFERASE 261.0 IU/L (10-60); AST ASPARTATE AMINOTRANSFERASE 111.0 IU/L (10-42); BUN - BLOOD UREA NITROGEN 10.0 mg/dL (6-20); CARBON DIOXIDE - CO2 28.0 mmol/L (21-32); CREATININE 1.0 mg/dL (0.6-1.3); GFR - MDRD 84.0 (>89)
[2024-11-30 08:16] VITALS: TEMP 97.9
[2024-11-30 10:57] VITALS: BP 149/88; O2SAT 97
--- NOTE | 2024-12-03 18:02 | Discharge Summary ---
"Discharge Summary Admit Date: 11/27/24 Discharge Date: 11/30/24 Discharging Provider: Frederick Code Status: Attempt Resuscitation Discharge Facility Name: [facility] DIAGNOSES Admission Diagnoses: Biliary colic Discharge Diagnoses with Status of Each Condition: Chronic cholecystitis with choledocholithiasis HPI History of Present Illness: HPI Comment/Other: Bk is a 39 year old male who has had 3 days of crescenso bilary colic with the most intense episode starting yesterday around 2100. The pain is sharp, located in the RUQ and radiates to the back. He has no nausea, vomiting or bloating. A CT of the abdomen was performed last night and revealed gallstones and gallbladder distension. US was not available and there were no available beds to admit him into the hospital so he was managed in the ED. This morning his pain is nearly completely gone. Bk works in the [employer], had had a previous laparoscopic marcello fundoplication 5 years ago, and denies prior episodes of this type of abdominal discomfort before this week. He tells me his pain which was at level 8/10 last night is nor at a level of 3. CONSULTS | PROCEDURES Procedures: 11/27/2024 - Laparoscopic cholecystectomy 11/28/2024 - MRCP 11/29/2024 - ERCP ([facility]) HOSPITAL COURSE Hospital Course: The garfield underwent an uneventful cholecystectomy and was found to have hyperbilirubinemia on his first post-op day. MRCP confirmed the presence of a 2 mm distal CBD stone without CBD dilation. Arrangements were made to transfer him to [facility] for ERCP which occurred on POD #2. ERCP with clearance of the common bile duct was performed and the patient was transferred back to our facility that evening. His subsequent post-ERCP course was uneventful and he was discharged on POD #3 with healing laparoscopic port sites, resolving hyperbilirubinemia, and minimal elevation of his serum lipase.. ALLERGIES Allergies Allergy/AdvReac Type Severity Reaction Status Date / Time iodine Allergy Mild HIVE Verified 11/27/24 07:44 MEDICATIONS Ambulatory Orders Medication Instructions Recorded Confirmed cyclobenzaprine 10 mg tablet 10 mg PO DAILY 11/27/24 1 duloxetine 20 mg capsule,delayed 60 mg PO DAILY 11/27/24 release lidocaine 5 % topical patch 1 patch topical DAILY PRN pain 11/27/24 11/28/24 omeprazole 20 mg capsule,delayed 20 mg PO DAILY PRN he artburn 11/27/24 11/28/24 release acetaminophen 325 mg tablet 650 mg (2 x 325 mg) PO Q6H #60 tabs 11/28/24 diphenhydramine 25 1 tab PO HS PRN sleep 11/28/24 mg-acetaminophen 500 mg tablet (Tylenol PM Extra Strength) ibuprofen 200 mg tablet 600 mg (3 x 200 mg) PO TID # 90 tabs 11/28/24 PHYSICAL EXAM AT DISCHARGE Vital Signs: 149/88; 60; 18; 36.6 General Appearance: positive Alert Eyes Bilateral: positive Normal inspection, PERRL and EOMI ENT: positive Pharynx nml Neck: positive Nml inspection and Trachea midline Respiratory: positive No respiratory distress Cardiovascular: positive Regular rate & rhythm Peripheral Pulses: positive 2+ Abdomen: positive Non-tender, Nml bowel sounds, No distention and Other (Port sites healing without bleeding or infection.) Skin: positive Color nml Extremities: positive Full ROM Neurologic/Psychiatric: positive Motor nml and Mood/affect nml LABS 11/29/24 05:39 11/30/24 05:49 DIAGNOSTIC IMAGING Diagnostic Imaging Results: Final report reviewed QUALITY (Female Hip Fx Only) Was patient sent home on osteoporosis medication?: No FOLLOW UP Follow Up: General Surgery Clinic in 10-14 days or sooner as needed TIME SPENT Time Spent in Discharge (Minutes): 30 Discharge Plan Discharge Patient Disposition: Home, Self Care Condition: Stable Prescriptions: New acetaminophen 325 mg Tablet 650 mg PO Q6H Qty: 60 0RF ibuprofen 200 mg tablet 600 mg PO TID Qty: 90 2RF Rx Instructions: 600 mg PO TIDWM for next 3 days, then TID as needed Continued cyclobenzaprine 10 mg tablet 10 mg PO DAILY lidocaine 5 % adhesive patch,medicated 1 patch topical DAILY PRN (Reason: pain) omeprazole 20 mg capsule,delayed release(DR/EC) 20 mg PO DAILY PRN (Reason: heartburn) duloxetine 20 mg capsule,delayed release(DR/EC) 60 mg PO DAILY No Action diphenhydramine-acetaminophen [Tylenol PM Extra Strength] 25-500 mg tablet 1 tab PO HS PRN (Reason: sleep) Activity Restrictions: Activity as Tolerated Activity Restrictions/Additional Instructions: Diet: As tolerated Activity: Be active, but remember, if it hurts to do, don't do it Meds: Use all regular meds as usual For pain control: Tylenol 650 mg orally 4 x a day for next 3 days, then 4 x a day as needed Ibuprofen 400 mg orally 3 x a day with meals for the next 3 days, then 3 x a day with meals as needed Wound Care: Leave the wounds covered with a band aid for 24 hours. Then, remove the brown band aids and shower gently over the white steri-strips. Leave the steri-strips on until they fall off or removed in the office. Use a band aid over the wounds if they are bothered by your clothing. Follow-up: General Surgery clinic in 7-10 days or sooner as needed. Our clinic staff will contact you for an appointment date. Call the clinic at with questions or concerns Diet: Regular Print Language: Vietnamese Patient Instructions: Having Laparoscopic Cholecystectomy Stand Alone Forms: PCP List Follow-up Care: PROMISE ANGELO ARNP [Primary Care Provider, Nurse Practitioner] Vitals documented within 30 minutes of discharge?: Yes"
== END 2024-11-30 09:44 | disposition home or self-care (01) | DRG 419 ==
LOC: ED 23:44 → MS2 11-27 09:22 → SDS 11-27 09:22 → MS2 11-27 13:25
PROVIDERS: ADMIT Surgery; ATTEND Surgery